=== PATIENT | female | born 2000 | race Caucasian/White ===

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

== ENCOUNTER → 2020-09-10 07:55 | Outpatient (CLI) | payer SELFPAY ==
--- NOTE | 2020-09-10 07:57 | RAD_ITS ---
STUDY: X-RAY CHEST REASON FOR EXAM: Female, 20 years old. encounter for other administrative examinations TECHNIQUE: COMPARISON: None. FINDINGS: The lungs are clear and expanded. There is no demonstrated pleural abnormality. Normal size heart. Normal mediastinum and piter. Normal visualized pulmonary arteries. Normal visualized aortic arch and descending thoracic aorta. Normal visualized thoracic spine. Normal visualized ribs, clavicles, and shoulders. There is no demonstrated abnormality of the visualized soft tissue structures of the upper abdomen. RAD/Chest PA and Lateral IMPRESSION: Normal x-ray examination of the chest. Electronically Signed: Amanda Muller, at 11:29 EDT Tel , Service support ,
[2020-09-10 10:22] LABS: Hematocrit 37.7 % (37-47); Hemoglobin 12.4 g/dL (12.0-15.0); Mean Corp Hgb Conc 32.9 g/dL (32-36); Mean Corpuscular Hgb 29.8 pg (27.0-32.0); Mean Corpuscular Volume 90.6 fL (81-99); Mean Platelet Vol. 9.7 fl (6.2-12.0); Platelet Count 372 K/mm3 (150-450); RBC Distribution Width SD 40.1 fl (35.1-43.9); Red Blood Count 4.16 M/mm3 (4.2-5.4)
[2020-09-10 10:53] LABS: Cholesterol 125 mg/dL (200); High Density Lipoprotein 39 mg/dL; Triglycerides 71 mg/dL; Very Low Density Lipoprotein 14 mg/dL (5-40)
== END ==
PROVIDERS: PCP Pediatrics; Referring Provider Physician Assistant Surgical; Visit Provider Physician Assistant Surgical
DX: Z02.89 Encounter for other administrative examinations (principal)
CPT/HCPCS: 36415; 71046; 80061; 85027

== ENCOUNTER → 2020-10-28 10:10 | Outpatient (CLI) | payer OTHER, SELFPAY ==
[2020-09-23 10:58] VITALS: BMI 19.1
== END ==
PROVIDERS: PCP Pediatrics; Referring Provider Pediatrics; Visit Provider Pediatrics
DX: Z83.49 Family history of other endocrine, nutritional and metabolic diseases (principal)
CPT/HCPCS: 36415

== ENCOUNTER → 2023-06-26 | Outpatient (CLI) | payer SELFPAY ==
[2023-07-01 22:06] LABS: Age Gdln ACOG Testing 21-29 (.)
[2023-07-02 21:09] LABS: HPV Reflexed? NOT INDICATED
== END | disposition home or self-care (01) ==
LOC: BFHLAB 14:52 → LABSPEC 14:52
PROVIDERS: PCP Family Medicine; Visit Provider Family Medicine
DX: Z12.4 Encounter for screening for malignant neoplasm of cervix (principal)
CPT/HCPCS: 88175; G0145